=== PATIENT | male | born 1980 | race African-American/Black ===

== ENCOUNTER 2021-10-24 18:28 | Emergency (ER) | payer MEDICAID ==
[~2021-10-24] VITALS: Ht 172.7 cm; Wt 80.0 kg
[2021-10-24] MEDS ORDERED: BACITRACIN ZINC OINT UDPKT TOP ONE (19:30)
[2021-10-24] MEDS ORDERED: FLUORESCEIN SODIUM 1MG/STRIP LEFTEYE ONE (19:30)
[2021-10-24] MEDS ORDERED: TETRACAINE 0.5% OPHTH DROPS 4ML LEFTEYE ONE (19:30)
[2021-10-24] MEDS ORDERED: ONDANSETRON 4MG ODT PO ONE (19:30)
[2021-10-24] MEDS ORDERED: TETANUS, DIPHTHERIA, PERTUSSIS VAC/PF 0.5ML (>10YR OLD) IM ONE (19:30)
[2021-10-24] MEDS ORDERED: MORPHINE SULFATE 10 MG/ML CPJ IM ONE (19:30)
[2021-10-24] MEDS ORDERED: IBUPROFEN 400MG TABLET PO ONE (21:30)
[2021-10-24] MEDS ORDERED: IBUP-2028 MT (21:32)
[2021-10-24] MEDS ORDERED: HYDR-4001 MT (21:32)
[2021-10-24 23:13] VITALS: BP 126/69
== END 2021-10-24 23:17 | disposition home or self-care (01) ==
LOC: ER 18:28
DX: S00.83XA Contusion of other part of head, initial encounter (principal); Y08.89XA Assault by other specified means, initial encounter; Y93.89 Activity, other specified; Y92.89 Other specified places as the place of occurrence of the external cause; Y99.8 Other external cause status; M79.18 Myalgia, other site
CPT/HCPCS: 70450; 70486; 71045; 72125; 72170; 73562; 90471; 90715; 99284; J2270; Q0162